=== PATIENT | female | born 1960 | race Caucasian/White ===

== ENCOUNTER 2016-10-11 18:05 | Inpatient (IN) | payer BC ==
[~2016-10-11] VITALS: Ht 147.3 cm; Wt 103.8 kg
--- NOTE | ~2016-10-11 | HP ---
ADMIT: 10/11/2016 RM/LOC: 525 [facility] MR#: [id number] [address] [address] [place] [address] History and Physical SEX: F AGE: 56 : 1960 DATE OF SERVICE: CHIEF COMPLAINT: Abdominal pain. HISTORY OF PRESENT ILLNESS: The patient is a very pleasant 56-year-old, obese female, who presents to the [facility] Emergency Room as a transfer patient from [place]. She notes she had been seen in the emergency room there with approximately 3 days of abdominal pain. She noted it was very severe in nature, localized to her left lower quadrant and moving across her lower abdomen. She noted some chills. Really, no nausea or vomiting, has noted no chest pain or shortness of breath. Did notice change in her bowel habits with decrease in her overall bowel movements for the last 48 hours. She notes that the pain overall was sharp. Noted a little bit of irritative voiding symptoms, but no hematuria. No dysuria or anything like that had been noted. Her CT scan showed diverticulitis and she was transferred here for further evaluation and treatment. PAST MEDICAL HISTORY: 1. History of carpal tunnel syndrome. 2. Prior history of diverticulitis approximately 10 years ago. 3. Eczema. 4. GERD. 5. Hypertension. 6. History of prior tobacco abuse. 7. Hyperlipidemia. 8. Hypothyroidism. 9. Pre-migraine. 10.History of prior migraines. 11.Overactive bladder. 12.Obesity. 13.Spontaneous vaginal delivery x2. 14.She is status post abdominal herniorrhaphy. 15.Status post appendectomy. 16.Status post right carpal tunnel. 17.Status post endometrial ablation. 18.Status post bilateral total hip arthroplasty. 19.History of lumbar diskectomy and thyroidectomy. 20.Postsurgical hypothyroidism. 21.Seasonal allergies. FAMILY HISTORY: Mother with leukemia. Brother and sisters with hypertension. Brother with hyperlipidemia. Uncle with an MS. Father had a suspected PE. She is and occasional drinker. No IV or illicit drugs. She is a former smoker, quit in 1985. CURRENT HOME MEDICATIONS: To include: 1. Celebrex. 2. Synthroid. 3. Mobic. ADMIT: 10/11/2016 RM/LOC: 525 [facility] MR#: [id number] [address] SAI CL[place] M [address] [place] [address] History and Physical SEX: F AGE: 56 : 1960 4. Fluticasone nasal spray. 5. Metformin. 6. Omeprazole. 7. Atorvastatin 10 mg. 8. Metoprolol 50 mg. 9. Multivitamin. 10.Calcium with vitamin D. REVIEW OF SYSTEMS: As noted above. All other systems are reviewed and negative. PHYSICAL EXAMINATION: VITAL SIGNS: 100.8, 90, 14, 126/84, and 97% on room air. GENERAL: This is an obese female. She is in no apparent distress. She is awake, alert, and oriented x3. Cooperative with the examiner. HEENT: Normocephalic and atraumatic. Mucous membranes are little dry. NECK: Supple. LUNGS: Clear. HEART: Regular. ABDOMEN: Obese. She is soft. She is tender in the left lower quadrant to palpation. She has good bowel sounds. Maybe just a little bit of guarding is noted. EXTREMITIES: Showed just trace edema. SKIN: Shows no rashes. NEUROLOGIC: Cranial nerves are intact II through XII. I do not notice any focal deficits she has got at this time. LABORATORY DATA: Lab work is reviewed from [place], which showed a hemoglobin of 13.9, white count was 18, 343,000 platelets. Sodium was 138, potassium 3.9, her BUN is 16, creatinine 0.85, glucose 112, calcium 96, AST 52, ALT 74, and alkaline phosphatase is 114. Amylase 51, CRP was over 13. CT scan of the abdomen and pelvis I reviewed the reports from [place] noted was severe acute diverticulitis in the left lower quadrant and pelvis involving the length of the descending and sigmoid colon about 11 cm. Complex cystic lesion in the interpolar region of left kidney measured approximately 3.2 cm in length. Next, cholelithiasis without any evidence of cholecystitis. Next, fatty infiltration of the liver. ASSESSMENT AND PLAN: 1. Acute diverticulitis. 2. Leukocytosis. 3. Mildly increased liver tests. ADMIT: 10/11/2016 RM/LOC: 525 [facility] MR#: [id number] [address] [address] [place] [address] History and Physical SEX: F AGE: 56 : 1960 4. Asymptomatic cholelithiasis. 5. Left renal cyst. 6. Obesity. 7. Hypertension. 8. Hyperlipidemia. 9. Pre-diabetes. At this time, her pain is improved. We will make plans for antibiotics, pain medications, antiemetics, and IV fluids. We will have her on a clear liquid diet. We will watch her blood sugars and on the CT scan, there had been some concern for a possible microperforation. However, right now with no abscess formation we will hold off on Surgical consultation, especially as the patient is feeling a little bit better and we will follow her very closely. Humberto Edmonds MD/ radha JOB #: [id number] CC: Humberto Edmonds, Attending Physician Jeremias Morrison, Family Physician
[2016-10-15] MEDS ORDERED: MOBIC DPS7.5 MG PO (06:04)
[2016-10-15] MEDS ORDERED: LIPITOR DPS10 MG PO (06:04)
[2016-10-15] MEDS ORDERED: SYNTHROID125 MCG PO (06:04)
[2016-10-15] MEDS ORDERED: GLUCOPHAGE-DPS500 MG PO (06:05)
[2016-10-15] MEDS ORDERED: PRILOSEC DPS20 MG PO (06:05)
[2016-10-15] MEDS ORDERED: POLY VI PO (06:05)
[2016-10-15] MEDS ORDERED: METOPROLOL TART50 MG PO (06:05)
[2016-10-15] MEDS ORDERED: HYDROCODON-ACE1 EAC4 PO (06:06)
[2016-10-15] MEDS ORDERED: CALCIUM600 MG PO (06:06)
[2016-10-15] MEDS ORDERED: AUGMENTIN 250250 MG PO (06:07)
--- NOTE | 2016-10-18 12:50 | DS ---
ADMIT: 10/11/2016 RM/LOC: 525 [facility] MR#: [id number] [address] [address] [place] [address] Discharge Summary SEX: F AGE: 56 : 1960 ADMISSION DATE: 10/11/2016 DISCHARGE DATE: 10/14/2016 DISCHARGE DIAGNOSES: 1. Acute diverticulitis. 2. Hypertension. 3. Hyperlipidemia. 4. Obesity. 5. Incidental finding of renal cyst on ultrasound. 6. Prediabetes. CONSULTATIONS: None. PROCEDURES: None. REASON FOR ADMISSION: A very pleasant, 56-year-old female presented to [facility] as a transfer from [place], [place]. There, she had been found to have left lower quadrant and underwent imaging showing diverticulitis. She was admitted for further evaluation and treatment. For complete details, please see H and P dictated on the day of admission. HOSPITAL COURSE: At the time of admission, the patient was placed in a telemetry bed. She underwent monitoring. She had a noted leukocytosis at the time of admission and was started on IV antibiotics. Over the next 72 hours, the patient slowly improved in pain. She did have some nausea with some pain medications that improved greatly. The patient ambulated and ate without difficulty and was thought to be ready for discharge to home on 10/14. DISCHARGE DIET: As tolerated. DISCHARGE ACTIVITY: As tolerated. DISCHARGE MEDICATIONS: Are found on her discharge medication list. She will finish up a course of Augmentin at home. Discussed the need for colonoscopy in at least six weeks after the episode of diverticulitis resolves. Also, patient will visit with the primary care doctor about imaging to follow up on that renal cyst. Humberto Edmonds MD/ mor JOB #: [id number] CC: Humberto Edmonds MD, Attending Physician Jeremias Morrison MD, Family Physician Dexter Shaw MD
--- NOTE | 2016-11-05 21:30 | ER ---
ADMIT: 10/11/2016 RM/LOC: 525 [facility] MR#: [id number] [address] [address] [place] [address] Emergency Room Report SEX: F AGE: 56 : 1960 DATE: 10/11/2016 ADDENDUM: CHIEF COMPLAINT: Diverticulitis. HISTORY OF PRESENT ILLNESS: This is a 56-year-old female, who was transferred from [place] for a known diverticulitis with microperforation. They sent her to [place] to be evaluated. I did speak with Dr. Bauer. He suggested to started Zosyn down in the emergency room. He said if Dr. Edmonds needs to consult him, he will be available. At this time, Dr. Humberto Edmonds is admitting for [facility]. CLINICAL IMPRESSION: Diverticulitis with microperforation. Lactic acid has been ordered down here. It is 1.1, and she is stable on admit. LISA Dudley / Cezar Juan MD / modl JOB #: [id number] CC: Humberto Edmonds MD, Attending Physician Jeremias Morrison MD, Family Physician
== END 2016-10-14 11:08 | disposition home or self-care (01) | DRG 392 ==
LOC: ER 18:05 → 5MS 19:00
PROVIDERS: ADMIT Internal Medicine
DX: K57.32 Diverticulitis of large intestine without perforation or abscess without bleeding (principal); K76.0 Fatty (change of) liver, not elsewhere classified; Z68.42 Body mass index [BMI] 45.0-49.9, adult; I10 Essential (primary) hypertension; N28.1 Cyst of kidney, acquired; E66.9 Obesity, unspecified; K21.9 Gastro-esophageal reflux disease without esophagitis; L30.9 Dermatitis, unspecified; R79.89 Other specified abnormal findings of blood chemistry; R73.03 Prediabetes; K80.20 Calculus of gallbladder without cholecystitis without obstruction; E89.0 Postprocedural hypothyroidism; E78.5 Hyperlipidemia, unspecified; N32.81 Overactive bladder; Z96.643 Presence of artificial hip joint, bilateral; Z82.49 Family history of ischemic heart disease and other diseases of the circulatory system; Z87.891 Personal history of nicotine dependence